=== PATIENT | male | born 1995 | race Caucasian/White ===

== ENCOUNTER 2022-09-02 12:38 | Emergency (ER) | payer OTHER ==
[2022-09-02 12:59] VITALS: RESP 18; TEMP 99.1; BMI 29.5
[2022-09-02] MEDS ORDERED: ACETAMINOPHEN 500 MG TABLET (FP) PO ONE (13:20)
[2022-09-02] MEDS ORDERED: SODIUM CHLORIDE 0.9% 500 ML INFUS.BAG IV ONE (13:21)
[2022-09-02] MEDS ORDERED: ACETAMINOPHEN 500 MG TABLET (FP) ONE (13:30)
[2022-09-02 14:01] LABS: HEMATOCRIT 42.8 % (35.4-49); HEMOGLOBIN 15.4 G/dL (11.7-16.9); MCH 35.1 pg (25.7-33.7); MCHC 36.1 g/dl (32.0-35.9); MEAN CELL VOLUME 97.4 fl (80-96); MEAN PLT VOLUME 6.8 fl (7.5-11.1); PLATELET COUNT 143.1 10^3/uL (134-434); RBC 4.39 10^6/uL (4.00-5.60); RDW 12.5 % (11.9-15.9); WHITE BLOOD COUNT 5.5 10^3/uL (4.0-10.8)
[2022-09-02 14:05] LABS: ALBUMIN 4.2 g/dl (3.4-5.0); BILIRUBIN,TOTAL 1.9 mg/dl (0.2-1); CALCIUM 9.3 mg/dl (8.5-10); CREATININE 0.9 mg/dl (0.55-1.3); TOT PROT 7.8 g/dl (6.4-8.2)
[2022-09-02 15:43] LABS: PLATELET ESTIMATE ADEQUATE
[2022-09-02 15:54] VITALS: BP 133/85; PULSE 95
== END 2022-09-02 16:58 | disposition home or self-care (01) ==
LOC: FER 12:38
DX: L27.0 Generalized skin eruption due to drugs and medicaments taken internally (principal)
CPT/HCPCS: 0241U-QW; 36415; 80053; 85027; 93005; 99284-25